=== PATIENT | male | born 1995 | race Two or more races ===

== ENCOUNTER 2016-10-08 14:56 | Emergency (ER) | payer MEDICAID ==
[~2016-10-08] VITALS: Ht 182.9 cm; Wt 129.3 kg
[2016-10-08 17:25] VITALS: BP 125/68
[2016-10-08] MEDS ORDERED: KETOROLAC TROMETH 60MG/2ML VIAL IM ONE (17:45)
== END 2016-10-08 18:43 | disposition home or self-care (01) ==
LOC: ER 14:56
DX: M54.16 Radiculopathy, lumbar region (principal)
CPT/HCPCS: 72100; 96372; 99284; J1885

== ENCOUNTER 2018-08-19 02:27 | Emergency (ER) | payer MEDICAID ==
[~2018-08-19] VITALS: Ht 182.9 cm; Wt 154.2 kg
[2018-08-19 02:36] VITALS: BP 114/70
[2018-08-19] MEDS ORDERED: methylPREDNISolone SOD SUCC 125 MG/2 ML VL IM ONE (03:45)
[2018-08-19] MEDS ORDERED: cefTRIAXone SOD 1,000 MG VL IM ONE (03:45)
[2018-08-19] MEDS ORDERED: LIDOCAINE 2% (LOCAL ANESTH.) PF 5ml SDV ONE (03:53)
[2018-08-19] MEDS ORDERED: LIDOCAINE HCL 2 %PF INJ 10ML AMP IJ ONE (04:15)
== END 2018-08-19 04:25 | disposition home or self-care (01) ==
LOC: ER 02:30
DX: J06.9 Acute upper respiratory infection, unspecified (principal)
CPT/HCPCS: 96372; 99283; J0696; J2001; J2930

== ENCOUNTER 2023-07-14 12:03 | Emergency (ER) | payer MEDICAID, OTHER ==
[~2023-07-14] VITALS: Ht 177.8 cm; Wt 148.8 kg
[2023-07-14 12:25] VITALS: BP 122/96; PULSE 70; RESP 18; O2SAT 97
== END 2023-07-14 14:42 | disposition left against medical advice (07) ==
LOC: ER 12:03
DX: M54.59 Other low back pain (principal); Z53.21 Procedure and treatment not carried out due to patient leaving prior to being seen by health care provider

== ENCOUNTER 2023-07-16 10:08 | Emergency (ER) | payer MEDICAID ==
[~2023-07-16] VITALS: Ht 182.9 cm; Wt 150.7 kg
[2023-07-16 11:42] VITALS: BP 119/54; PULSE 63; RESP 18; TEMP 98.5; O2SAT 98
[2023-07-16] MEDS ORDERED: HYDROcodone-ACET 5/325MG TAB PO ONE (12:00)
[2023-07-16] MEDS ORDERED: KETOROLAC TROMETH 60MG/2ML VIAL IM ONE (12:00)
[2023-07-16] MEDS ORDERED: PRED20TA2 PO (12:30)
[2023-07-16] MEDS ORDERED: IBUP-1456 PO (12:30)
[2023-07-16] MEDS ORDERED: METH-1182 PO (12:30)
== END 2023-07-16 12:37 | disposition home or self-care (01) ==
LOC: ER 10:08
DX: G89.29 Other chronic pain (principal); M54.50 Low back pain, unspecified; M62.830 Muscle spasm of back
CPT/HCPCS: 96372; 99283; J1885